=== PATIENT | female | born 1985 | race Caucasian/White ===

== ENCOUNTER 2017-09-22 11:38 | Emergency (ER) | payer OTHER, SELFPAY ==
[~2017-09-22] VITALS: Ht 175.3 cm; Wt 90.4 kg
[2017-09-22 11:39] VITALS: BP 149/89
[2017-09-22] MEDS ORDERED: BACITRACIN ZINC OINT 500U/GM, 0.9 GM ONE (12:05)
[2017-09-22] MEDS ORDERED: DIPH,PERTUSS(ACELL),TET VAC/PF 0.5 ML IM-VACC ONE ×2 (12:06→12:30)
== END 2017-09-22 12:42 | disposition home or self-care (01) ==
LOC: ED 12:23
DX: S61.431A Puncture wound without foreign body of right hand, initial encounter (principal); W22.8XXA Striking against or struck by other objects, initial encounter; Y93.89 Activity, other specified; Y92.89 Other specified places as the place of occurrence of the external cause; Y99.8 Other external cause status
CPT/HCPCS: 90715; 96372; 99283